=== PATIENT | female | born 1995 | race Caucasian/White ===

== ENCOUNTER 2023-07-14 12:25 | Emergency (ER) | payer OTHER ==
[~2023-07-14] VITALS: Ht 167.6 cm; Wt 68.5 kg
[2023-07-14 12:53] LABS: BASOPHILS % (AUTO) 0.5 % (0.0-2.0); EOSINOPHILS # (AUTO) 0.1 K/uL (0.0-0.7); EOSINOPHILS % (AUTO) 1.4 % (0.0-6.0); HEMATOCRIT 35 % (33-45); HEMOGLOBIN 11.8 g/dL (11.5-14.8); LYMPHOCYTES # (AUTO) 1.2 K/uL (0.8-4.8); LYMPHOCYTES % (AUTO) 25.9 % (20.0-44.0); MEAN CORPUSCULAR HEMOGLOBIN 30 PG (26.0-33.0); MEAN CORPUSCULAR HGB CONC 34 g/dl (31.0-36.0); MEAN CORPUSCULAR VOLUME 89 fL (82-100); MONOCYTES # (AUTO) 0.3 K/uL (0.1-1.30); MONOCYTES % (AUTO) 6.2 % (2.0-12.0); PLATELET COUNT (AUTO) 221 K/uL (150-450); RED BLOOD CELL COUNT(AUTO) 3.91 MIL/uL (4.0-5.2); RED CELL DISTRIBUTION WIDTH 12.3 % (11.5-15.0); WHITE BLOOD COUNT (AUTO) 4.5 K/uL (4.3-11.0)
[2023-07-14 12:54] LABS: APPEARANCE,URINE CLEAR (CLEAR); BILIRUBIN,URINE NEGATIVE (NEGATIVE); BLOOD, URINE 3+ Ery/uL (NEGATIVE); COLOR,URINE YELLOW (YELLOW); KETONES,URINE NEGATIVE (NEGATIVE); LEUKOCYTE ESTERASE ,URINE NEGATIVE (NEGATIVE); NITRITE, URINE NEGATIVE (NEGATIVE); PROTEIN,URINE NEGATIVE (NEGATIVE); UGLUCOSE NEGATIVE (NEGATIVE); UROBILINOGEN,URINE 0.2 EU/dL (0.2)
[2023-07-14 12:58] LABS: PREGNANCY TEST URINE QUAL NEGATIVE (NEGATIVE)
[2023-07-14 13:01] LABS: CALCIUM, SERUM 8.9 mg/dL (8.5-10.1); CREATININE 0.8 mg/dL (0.6-1.3); POTASSIUM 3.2 mmol/L (3.5-5.1)
[2023-07-14 13:07] LABS: BILIRUBIN,DIRECT 0.1 mg/dL (0.0-0.2); BILIRUBIN,TOTAL 0.5 mg/dL (0.2-1.0); TOTAL PROTEIN, SERUM 7.5 g/dL (6.4-8.2)
[2023-07-14 16:11] LABS: WBC,URINE NONE SEEN /HPF (0-3)
[2023-07-14 16:12] LABS: ADD URINE CULTURE NO; BACTERIA,URINE Few /HPF (None Seen)
[2023-07-14 16:55] VITALS: BP 122/60; TEMP 98.3; O2SAT 100
== END 2023-07-14 16:56 | disposition home or self-care (01) ==
LOC: ER 12:25
DX: R10.31 Right lower quadrant pain (principal); R10.32 Left lower quadrant pain; R10.2 Pelvic and perineal pain
CPT/HCPCS: 36415; 76856-TC; 80048-TC; 80076-TC; 81001; 83690-TC; 84703-TC; 85025-TC